=== PATIENT | male | born 1960 | race Caucasian/White ===

== ENCOUNTER 2018-12-03 23:57 | Emergency (ER) | payer OTHER ==
[2018-12-04 01:31] LABS: ABSOLUTE EOSINOPHILS # (AUTO) 0.1 10^3/uL (0.0-0.6); ABSOLUTE LYMPHOCYTES (AUTO) 1.2 10^3/uL (0.5-4.7); ABSOLUTE MONOCYTES (AUTO) 0.5 10^3/uL (0.1-1.4); ABSOLUTE NEUT (AUTO) 5.2 10^3/uL (1.7-8.2); BASOPHILS % (AUTO) 0.6 % (0-2); EOSINOPHILS % (AUTO) 1.9 % (0-6); HEMATOCRIT 43.6 % (37.9-51.0); HEMOGLOBIN 14.8 g/dL (13.5-17.0); MEAN CORPUSCULAR HEMOGLOBIN 32.2 pg (27.0-33.4); MEAN CORPUSCULAR HGB CONC 33.9 g/dL (32.0-36.0); MEAN CORPUSCULAR VOLUME 95 fl (80-97); MONOCYTES % (AUTO) 7.2 % (3-13); PLATELET COUNT 254 10^3/uL (150-450); RED BLOOD COUNT 4.59 10^6/uL (4.35-5.55); RED CELL DISTRIBUTION WIDTH 13.5 % (11.5-14.0); SEGMENTED NEUTROPHILS % (AUTO) 73.3 % (42-78); TOTAL CELLS COUNTED % (AUTO) 100 %; WHITE BLOOD COUNT 7.1 10^3/uL (4.0-10.5)
[2018-12-04 01:45] LABS: BILIRUBIN,URINE NEGATIVE (NEGATIVE); GLUCOSE, URINE NEGATIVE (NEGATIVE); KETONES,URINE NEGATIVE (NEGATIVE); LEUKOCYTE ESTERASE,URINE NEGATIVE (NEGATIVE); NITRITE,URINE NEGATIVE (NEGATIVE); PROTEIN,URINE 30 mg/dL (NEGATIVE); URINE SPECIFIC GRAVITY 1.013; UROBILINOGEN,URINE NEGATIVE mg/dL (<2.0)
[2018-12-04 01:46] LABS: APPEARANCE,URINE TURBID; COLOR,URINE BROWN
[2018-12-04 01:54] LABS: ALANINE AMINOTRANSFERASE 33 U/L (21-72); ALBUMIN 4.3 g/dL (3.5-5.0); ALKALINE PHOSPHATASE 81 U/L (38-126); ANION GAP 7 (5-19); ASPARTATE AMINO TRANSFERASE 37 U/L (17-59); BILIRUBIN,DIRECT 0.2 mg/dL (0.0-0.4); BILIRUBIN,TOTAL 0.6 mg/dL (0.2-1.3); BLOOD UREA NITROGEN 19 mg/dL (7-20); CARBON DIOXIDE 31 mmol/L (22-30); CHLORIDE 103 mmol/L (98-107); GLUCOSE 111 mg/dL (75-110); LIPASE 100.1 U/L (23-300); POTASSIUM 4.1 mmol/L (3.6-5.0); SODIUM 140.7 mmol/L (137-145); TOTAL PROTEIN 7.4 g/dL (6.3-8.2)
[2018-12-04] MEDS ORDERED: KETOROLAC TROMETHAMINE INJ/PF 30 MG/1 ML SDV IM ONE (03:19)
[2018-12-04] MEDS ORDERED: ONDANSETRON 4 MG TAB.RAPDIS PO ONE (03:19)
[2018-12-04] MEDS ORDERED: TAMSULOSIN HCL 0.4 MG CAP.SR.24H PO ONE (03:19)
[2018-12-04 04:23] VITALS: BP 141/83
--- NOTE | 2018-12-04 04:41 | ER Document Report ---
ED General - General Chief Complaint: Possible Kidney Stone Stated Complaint: RIGHT FLANK PAIN Time Seen by Provider: 12/04/18 03:13 Primary Care Provider: GENIA RODRIGUEZ MD [NO LOCAL MD] - 12/08/18 Notes: Patient is a pleasant 58-year-old male who presents with complaints of right flank pain. Patient says it started late last night. He had a few episodes of nausea and vomiting. No fevers. Says feels just like previous kidney stones. He has had 2 previous kidney stones. One required lithotripsy other than when he passed on his own. He denies any fevers. No other complaints at this time. TRAVEL OUTSIDE OF THE [place] IN LAST 30 DAYS: No - Related Data Allergies/Adverse Reactions: No Known Allergies Allergy (Unverified 12/04/18 00:00) Past Medical History - Social History Smoking Status: Never Smoker Chew tobacco use (# tins/day): No Frequency of alcohol use: None Drug Abuse: None Family History: Reviewed & Not Pertinent Patient has suicidal ideation: No Patient has homicidal ideation: No Renal/ Medical History: Denies: Hx Peritoneal Dialysis Review of Systems - Review of Systems Notes: My Normal Review Basic REVIEW OF SYSTEMS: CONSTITUTIONAL : Denies fever, chills, or sweats. Denies recent illness. RESPIRATORY: Denies cough, cold, or chest congestion. Denies shortness of breath, difficulty breathing, or wheezing. GASTROINTESTINAL: Denies abdominal pain. Right flank pain. Some vomiting. GENITOURINARY: Denies difficulty urinating, painful urination, burning, frequency. Some dark urine. MUSCULOSKELETAL: Denies neck or back pain or joint pain or swelling. SKIN: Denies rash or skin lesions. NEUROLOGICAL: Denies altered mental status or loss of consciousness. Denies headache. Denies weakness or paralysis or loss of use of either side. Denies problems with gait or speech. Denies sensory or motor loss. ALL OTHER SYSTEMS REVIEWED AND NEGATIVE. Physical Exam - Vital signs Vitals: Temp Pulse Resp BP Pulse Ox 98.4 F 58 L 18 140/80 H 98 12/04/18 00:37 12/04/18 00:37 12/04/18 00:37 12/04/18 00:37 12/04/18 00:37 - Notes Notes: General Appearance: Well nourished, alert, cooperative, no acute distress, mild obvious discomfort. Vitals: reviewed, See vital signs table. Eyes: PERRL, EOMI, Conjuctiva clear Lungs: No wheezing, No rales, No rhonci, No accessory muscle use, good air exchange bilaterally. Heart: Normal rate, Regular rythm, No murmur, no rub Abdomen: Normal BS, soft, No rigidity, No reproducible pain to palpation of the abdomen or flank., No guarding, no rebound, Extremities: good pulses in all extremities, no swelling or tenderness in the extremities, no edema. Skin: warm, dry, appropriate color, no rash Neuro: speech clear, oriented x 3, normal affect, responds appropriately to questions. Course - Re-evaluation Re-evalutation: 12/04/18 05:37 Patient's symptoms of sudden onset flank pain that is not reproducible palpation in association with hematuria is consistent with a kidney stone. Says it feels just like his previous kidney stones. I informed him that I would rather avoid CT scan at this time as patient's symptoms and work-up is consistent with kidney stone and therefore I would rather avoid extra radiation of a CT scan. Patient is agreeable with this. Patient looks well and his symptoms are actually almost completely resolved on its own. I did give him towards Toradol which together with the remainder of his pain. Will discharge home with Toradol and Zofran. I encouraged him to have a low threshold to return to ER if he has intractable pa in, intractable vomiting, fevers, or if he feels unwell. Patient agrees with plan and will be discharged home. Dictation of this chart was performed using voice recognition software; therefore, there may be some unintended grammatical errors. - Vital Signs Vital signs: Temp Pulse Resp BP Pulse Ox 97.4 F 99 16 141/83 H 98 12/04/18 04:21 12/04/18 04:21 12/04/18 04:21 12/04/18 04:21 12/04/18 00:37 - Laboratory Result Diagrams: 12/04/18 01:05 12/04/18 01:05 Laboratory results interpreted by me: 12/04/18 12/04/18 01:05 01:05 Carbon Dioxide 31 H Glucose 111 H Urine Protein 30 H Urine Blood LARGE H Discharge - Discharge Clinical Impression: Right flank pain, Hematuria Condition: Good Disposition: HOME, SELF-CARE Additional Instructions: As discussed with you, based on her symptoms and history I do suspect that you have a kidney stone on the right side. Please take medication as prescribed. Do not take other NSAID medicaitons such as Aspirin, Motrin, Ibuprofen, Aleve, or Advil when taking the Toradol. It is okay to take Tylenol. Please follow-up with urologist if you are still having some recurrent pain by Saturday. Have a low threshold to return to the ER for fevers, intractable pain, trouble vomiting, or feel like you are worsening in any way. Prescriptions: Ketorolac Tromethamine [Toradol 10 mg Tablet] 10 mg PO Q8HP PRN #15 tablet PRN Reason: Ondansetron [Zofran Odt 4 mg Tablet] 1 tab PO Q4H PRN #15 tab.rapdis PRN Reason: For Nausea/Vomiting Tamsulosin HCl [Flomax] 0.4 mg PO DAILY #7 cap.er.24h Forms: Return to Work Referrals: GENIA RODRIGUEZ MD [NO LOCAL MD] - 12/08/18
== END 2018-12-04 04:46 | disposition home or self-care (01) ==
LOC: ER 23:57
DX: R10.9 Unspecified abdominal pain (principal); R31.9 Hematuria, unspecified; R11.2 Nausea with vomiting, unspecified
CPT/HCPCS: 99284; 36415; 83690; 85025; 80053; 81001; S0119; J1885